=== PATIENT | female | born 1955 | race African-American/Black ===

== ENCOUNTER → 2017-05-01 | Outpatient (CLI) | payer BC ==
[~2017-05-01] MED LIST: ARIP2TAB3 PO; CLON0.5T PO; DIPH25CA58 PO; DULO30CA2 PO; IBUP-1027 PO; IOHEXOL 180 MG/ML 10 ML VIAL. ONE; META-21 PO; OXYC-323 PO; PSEU120T9 PO; TRAM50TA PO; TRAZ50TA15 PO; ZOLP12.54 PO; methylPREDNISolone ACETATE 40 MG/ML VIAL. ONE; methylPREDNISolone ACETATE 80 MG/ML VIAL. ONE
--- NOTE | 2017-05-02 03:31 | PAIN ---
DATE OF SERVICE: 05/01/2017 PROGRESS NOTE FOR PAIN CLINIC DIAGNOSES: Lumbar radiculopathy with lumbar degenerative disk disease and lumbar herniated disk. HISTORY OF PRESENT ILLNESS: The patient is a 62-year-old female returns, last seen in 03/07/2016. The patient underwent lumbar epidural steroid injection at that time with about 100% improvement that was over a year and about 2 months ago. The patient reports that the pain has been returning now for several months, it is getting worse in the low back and into the bilateral lower extremities with pain and burning in the thighs both anteriorly and medially, but also in the lateral thighs and some in the low back as well. The patient reports anywhere from 1 to a 7 on a scale 10, 7 at its worst, normally about 3 on a scale of 10, it is a 1 on a scale of 10 today. The patient reports no loss of motor function, but still significant pain, as she had last year, worse with walking and standing, burning thighs with slight bending forward, has burning in the low back, constant pain in her knees as well. She is scheduled for a right knee replacement on the right knee. She reports later this summer. PAST MEDICAL HISTORY: Significant for hypertension, arthritis, headaches, sinus congestion, cataracts. PREVIOUS SURGERY: Includes cervical diskectomy in 2004, cataract extractions, 2 C-sections, hernia repair, appendectomy, foot surgery x 2, history of kidney stones removed and fatty tumor in the neck removed. CURRENT MEDICATIONS: Include trazodone, zolpidem, Abilify, Cymbalta, Klonopin, Benadryl, Sudafed, tramadol, Skelaxin, ibuprofen and Percocet. ALLERGIES: THE PATIENT IS ALLERGIC TO BACTRIM. SOCIAL HISTORY: The patient does not smoke. Drinks about 2 alcoholic drinks a week on an average. Works in a [employer] department. , lives with her spouse, lives locally in [place], [place]. FAMILY HISTORY: Significant for brain tumors, cancers, and hypertension. REVIEW OF SYSTEMS: The patient's review of systems is positive for those items mentioned in history of present illness. All systems reviewed and otherwise negative. It is complete, full and well documented on the patient's chart. PHYSICAL EXAMINATION: VITAL SIGNS: Today, the patient's blood pressure 117/65, pulse 98, respirations 18, temperature 98.4 degrees Fahrenheit, height is 5 feet 2 inches, weight is 273 pounds. GENERAL: The patient is awake, alert, oriented, appropriate, very pleasant demeanor. HEENT: Head shows normocephalic, atraumatic. Extraocular movements are intact, symmetrical. Oral cavity, mucous membranes are moist and pink. Dentition is intact. NECK: Shows anterior throat supple without palpable lymphadenopathy noted. Swallow reflex is symmetrical. CHEST: Shows normal on inspection. Breath sounds clear to auscultation bilaterally. HEART: Shows S1 and S2 clear. No murmurs are auscultated. ABDOMEN: Obese, soft, nontender, nondistended. No palpable organomegaly. No rebound or guarding demonstrated. BACK: Shows grossly midline spine with some slight exaggeration of thoracic kyphosis, mild flattening of lumbar lordotic curvature. No previous surgical scars. Lumbar paraspinous musculature shows symmetrical on inspection with palpation shows normal muscle girth in the upper, middle and lower distribution with some minor tenderness which is only diffusely tender mostly in the middle and lower distribution of paraspinous muscles, but without radiation. There is no tenderness over the sacrum or sacroiliac regions. The patient shows good rotation and motion of the lumbar spine, both laterally as well as extension and flexion without significant pain reported. EXTREMITIES: The patient's lower extremities showed deep tendon reflexes 1+ in the patellar and tendo calcaneus tendons are equal. Motor exam is strong with dorsiflexion, extension, quadriceps and hamstring flexion rated 5/5 and symmetrical. Peripheral pulses are 1+ in the posterior tibial and dorsalis pedis pulses. No peripheral edema is noted. Options were discussed with the patient. At this time, the patient's old chart was reviewed as her current medication regimen updated. Current review of systems updated as noted. We will proceed with a lumbar epidural steroid injection today with translaminar approach and fluoroscopic guidance. Risks were again discussed including, but not limited to bleeding, infection, possibility of epidural hematoma, subsequent neurologic compromise, dural puncture, headaches, spinal cord and/or nerve damage, side effects of steroid medication and poor results regarding pain control. The patient understands and wishes to proceed. The patient will return to clinic in approximately 2 weeks for followup. She was counseled to return appointment, activity level and side effects to be aware of. DIAGNOSES: Lumbar radiculopathy with lumbar degenerative disk disease, lumbar herniated disk. PROCEDURE: Lumbar epidural steroid injection in translaminar approach at the L3-L4 level using C-arm fluoroscopic guidance under sterile prep and drape using local anesthetic. MEDICATION INJECTED: 120 mg Depo-Medrol plus 10 mL of preservative-free normal saline and 2 mL of Isovue for contrast. CONDITION AT DISCHARGE: Stable. The patient tolerated procedure well, had no complications. CRESENCIO SNIDER MD DR: KEMAL/randy JOB#: [id number] / [id number]
== END | disposition home or self-care (01) ==
LOC: PNCL 14:48
PROVIDERS: ATTEND Anesthesiology
DX: M51.16 Intervertebral disc disorders with radiculopathy, lumbar region (principal); I10 Essential (primary) hypertension; M19.90 Unspecified osteoarthritis, unspecified site; Z82.49 Family history of ischemic heart disease and other diseases of the circulatory system; Z72.89 Other problems related to lifestyle; Z88.1 Allergy status to other antibiotic agents; Z88.3 Allergy status to other anti-infective agents
CPT/HCPCS: 62323; J1030; J1040

== ENCOUNTER → 2018-03-15 | Outpatient (CLI) | payer BC | END | disposition home or self-care (01) | LOC: PNCL 08:28 | DX: M51.16 Intervertebral disc disorders with radiculopathy, lumbar region (principal); M25.551 Pain in right hip; M25.561 Pain in right knee; M25.562 Pain in left knee | CPT/HCPCS: 99212 ==

== ENCOUNTER → 2018-04-12 | Outpatient (CLI) | payer BC ==
[~2018-04-12] MED LIST changes: -ARIP2TAB3 PO; -CLON0.5T PO; -DIPH25CA58 PO; -DULO30CA2 PO; -IBUP-1027 PO; +IOHEXOL 180 MG/ML 10 ML VIAL.; -IOHEXOL 180 MG/ML 10 ML VIAL. ONE; +LIDOCAINE 1% PF 2 ML VIAL.; -META-21 PO; -OXYC-323 PO; -PSEU120T9 PO; -TRAM50TA PO; -TRAZ50TA15 PO; -ZOLP12.54 PO; +methylPREDNISolone ACETATE 40 MG/ML VIAL.; -methylPREDNISolone ACETATE 40 MG/ML VIAL. ONE; +methylPREDNISolone ACETATE 80 MG/ML VIAL.; -methylPREDNISolone ACETATE 80 MG/ML VIAL. ONE
== END ==
LOC: PNCL 07:29
DX: M51.16 Intervertebral disc disorders with radiculopathy, lumbar region (principal)
CPT/HCPCS: 62323; J1030; J1040; Q9965

== ENCOUNTER → 2018-07-12 | Outpatient (CLI) | payer BC ==
[~2018-07-12] MED LIST changes: +ALPR1TAB2 PO; +ARIP2TAB3 PO; +CHOL2000 PO; +CLON0.5T PO; +DIPH25CA58 PO; +DULO30CA2 PO; +GABA-586 PO; +IBUP-1027 PO; -IOHEXOL 180 MG/ML 10 ML VIAL.; +IOHEXOL 180 MG/ML 10 ML VIAL. ONE; -LIDOCAINE 1% PF 2 ML VIAL.; +LIDOCAINE 2% PF 2ML VIAL. ONE; +META-21 PO; +OXYC-323 PO; +PSEU120T9 PO; +ROPI0.5T PO; +TRAM50TA PO; +TRAZ-85 PO; +ZOLP12.54 PO; +cbd; +loratidine; -methylPREDNISolone ACETATE 40 MG/ML VIAL.; +methylPREDNISolone ACETATE 40 MG/ML VIAL. ONE; -methylPREDNISolone ACETATE 80 MG/ML VIAL.; +methylPREDNISolone ACETATE 80 MG/ML VIAL. ONE
--- NOTE | 2018-07-12 14:03 | PAIN ---
DATE OF SERVICE: 07/12/2018 PROGRESS NOTE TO PAIN CLINIC DIAGNOSES: Lumbar radiculopathy with lumbar degenerative disk disease, lumbar herniated disk. HISTORY OF PRESENT ILLNESS: The patient is a 63-year-old female who returns for followup status post lumbar epidural steroid injection x 1 on 04/12/2018. The patient did well with this, about 80% improvement for the first month to a month and a half and the pain began to return very gradually and slowly in the low back and left lower extremity as it was previously in the anterior lateral thigh, anterior medial thigh, medial knee on the left side. The patient reports it is an 8 on a scale of 10 at its worst, 6 on average and 3 at its least and is a 6 today. The patient reports it as burning, radiating and tight; worse with standing, walking; also has bilateral knee pain, which she feels is making her back worse and she is favoring her knees significantly. The patient reports it is worse with sitting upright for a prolonged period for 15-20 minutes, better with lying down. It wakes her from sleep about every 4-6 hours, but usually she repositions and gets back to sleep. The patient reports no new motor or sensory deficits, no new bowel or bladder incontinence or complaints. PHYSICAL EXAMINATION: VITAL SIGNS: The patient's blood pressure is 156/99, pulse 93, respirations 18, temperature 98.2 degrees Fahrenheit, 5 feet 2 inches, weight is 239 pounds. GENERAL: The patient is awake, alert, oriented, appropriate, very pleasant demeanor. HEENT: Head shows normocephalic, atraumatic. Extraocular movements are intact and symmetrical. Oral cavity: Mucous membranes moist and pink. Dentition is intact. NECK: Shows anterior throat supple without palpable lymphadenopathy noted. Swallow reflex symmetrical. CHEST: Shows normal with inspection. Breath sounds clear to auscultation bilaterally. HEART: Shows S1, S2 clear. No murmurs auscultated. ABDOMEN: Soft, nontender, nondistended. No palpable organomegaly. No rebound or guarding demonstrated. BACK: Shows spine grossly in the midline. Normal-appearing thoracic kyphosis, some minor flattening of lumbar lordotic curvature. Lumbar paraspinous muscle shows symmetrical on inspection; on palpation, shows some moderate tenderness but only diffusely without radiation. The patient has good rotational motion of lumbar spine, both laterally as well as extension and flexion without significant difficulty or pain reported. EXTREMITIES: The patient's lower extremities show deep tendon reflexes at 1+ in the patellar and tendo-calcaneus tendons. Motor exam is strong with 5/5 dorsiflexion and extension, quadriceps and hamstring flexion is symmetrical bilaterally as well. No peripheral edema is noted. Peripheral pulses are 1+ bilaterally. Options were discussed with the patient. The patient's old chart was reviewed as her current medication regimen updated. Current review of systems updated today as well. We will proceed with the second in a series of lumbar epidural steroid injection today with fluoroscopic guidance. Risks were again discussed including, but not limited to bleeding, infection, possibility of epidural hematoma, subsequent neurologic compromise, dural puncture, headaches, spinal cord and/or nerve damage, side effects of steroid medication and poor results regarding pain control. The patient understands and wished to proceed. The patient will return to clinic in approximately 2 weeks for followup, was counseled on return appointment, activity level and side effects to be aware of. DIAGNOSIS: Lumbar radiculopathy with lumbar degenerative disk disease, lumbar herniated disk. PROCEDURES: Lumbar epidural steroid injection, translaminar approach at L3-L4 level using C-arm fluoroscopic guidance under sterile prep and drape using local anesthetic. MEDICATION INJECTED: A total of 120 mg Depo-Medrol plus 10 mL of preservative-free normal saline and 2 mL of Isovue for contrast. CONDITION AT DISCHARGE: Stable. The patient tolerated procedure well, had no complications. CRESENCIO SNIDER MD DR: KEMAL/randy JOB#: [id number] / [id number]
== END | disposition home or self-care (01) ==
LOC: PNCL 09:10
PROVIDERS: ATTEND Anesthesiology
DX: M51.16 Intervertebral disc disorders with radiculopathy, lumbar region (principal); Z88.2 Allergy status to sulfonamides; Z88.1 Allergy status to other antibiotic agents
CPT/HCPCS: 62323; J1030; J1040; J2001; Q9965

== ENCOUNTER → 2019-09-09 | Outpatient (CLI) | payer BC ==
[~2019-09-09] MED LIST changes: +BUPIVACAINE MPF 0.25% 10 ML VIAL. ONE; +FEXO180T81 PO; -GABA-586 PO; +GABA300C18 PO; +HYDR25TA PO; +IBUP1TAB84 PO; -LIDOCAINE 2% PF 2ML VIAL. ONE; -OXYC-323 PO; +OXYC1TAB15 PO; +TRAZ-118 PO; -TRAZ-85 PO; -methylPREDNISolone ACETATE 40 MG/ML VIAL. ONE
--- NOTE | 2019-09-09 09:21 | PAIN ---
DATE OF SERVICE: 09/09/2019 PROGRESS NOTE FOR PAIN CLINIC DIAGNOSES: 1. Lumbar radiculopathy with lumbar degenerative disk disease and lumbar herniated disk. 2. Left greater trochanteric bursitis. HISTORY OF PRESENT ILLNESS: The patient is a 64-year-old female who returns for followup status post lumbar epidural steroid injection x 2, first in February and then the second one on 04/04/2019. The patient did well with these initially, but the pain is returning now, is different. The patient reports her back pain is still significantly painful in the back and the left lower extremity. She is planning a knee surgery in about one month on the right side, but her main complaint today is left lateral hip pain, worse with walking, standing, changing positions, especially standing from a sitting position and with standing for any period of time. The patient reports it is unbearable. She has been using heat and ice, doing massage therapy, stretching without significant decrease in pain, it is very different from her pain on her last visit and reports it is excruciating. The patient rates her pain as 8-9 on a scale of 10 at its worst, 8 on average, 7 at its least and is a 7 today. The patient reports it is aching, sharp, shooting, tingling, burning, radiating and unbearable at times. The patient reports no new motor or sensory deficits, no loss of bowel or bladder incontinence. PHYSICAL EXAMINATION: VITAL SIGNS: The patient's blood pressure 176/106, pulse 105, respirations 18, temperature 98.0 degrees Fahrenheit, height is 5 feet 2 inches, weight 226 pounds. GENERAL: The patient is awake, alert, oriented, appropriate, very pleasant demeanor. HEENT: Exam shows normocephalic, atraumatic. Extraocular movements are intact and symmetrical. Oral cavity: Mucous membranes moist and pink. Dentition is intact. NECK: Shows anterior throat supple without palpable lymphadenopathy noted. Swallow reflex is symmetrical. CHEST: Shows normal on inspection. Breath sounds clear to auscultation bilaterally. HEART: Shows S1, S2 clear. No murmurs auscultated. ABDOMEN: Soft, nontender, nondistended. No palpable organomegaly is noted. No rebound or guarding demonstrated. BACK: Shows spine grossly in the midline. Normal-appearing thoracic kyphosis and lumbar lordotic curvature. Lumbar paraspinous muscle shows symmetrical on inspection, on palpation shows some moderate tenderness diffusely bilaterally, but only diffusely without significant radiation. EXTREMITIES: The patient's lower extremities show deep tendon reflexes at 1+ in the patellar and tendo calcaneus tendons. Motor exam is strong with 5/5 dorsiflexion, extension, quadriceps and hamstring flexion. Peripheral pulses are 1+ posterior tibia. No peripheral edema is noted. The patient's left lateral thigh shows excruciating pain with even moderate palpation over the left greater trochanter, mild pain over the right greater trochanter as well. Options were discussed with the patient. The patient's old chart was reviewed as her current medication regimen updated. Current review of systems updated today as well. We will proceed with a left greater trochanteric bursa injection today with fluoroscopic guidance. Risks were again discussed including, but not limited to bleeding, infection, possibility of intravascular injection sequelae, spread of local anesthetic and numbness, side effects of steroid medication and poor results regarding pain control. The patient understands and wished to proceed. The patient will return to clinic in approximately 2 weeks for followup. She was counseled on return appointment, activity level and side effects to be aware of. DIAGNOSIS: Left greater trochanteric bursitis. PROCEDURE: Left greater trochanteric bursa injection using C-arm fluoroscopic guidance under sterile prep and drape using local anesthetic. MEDICATION INJECTED: A total of 80 mg Depo-Medrol plus 3 mL of 0.25% bupivacaine and 1 mL of contrast. CONDITION AT DISCHARGE: Stable. The patient tolerated the procedure well, had no complications. CRESENCIO SNIDER MD DR: KEMAL/randy JOB#: [id number] / [id number]
== END ==
LOC: PNCL 07:31
PROVIDERS: ATTEND Anesthesiology
DX: M70.62 Trochanteric bursitis, left hip (principal); M51.16 Intervertebral disc disorders with radiculopathy, lumbar region
CPT/HCPCS: 20610; 77002; J1040; J3490; Q9965; 20605

== ENCOUNTER → 2019-09-16 | Outpatient (CLI) | payer BC ==
[~2019-09-16] MED LIST changes: -BUPIVACAINE MPF 0.25% 10 ML VIAL. ONE; -IOHEXOL 180 MG/ML 10 ML VIAL. ONE; -methylPREDNISolone ACETATE 80 MG/ML VIAL. ONE
--- NOTE | 2019-09-17 08:24 | KCIC ---
MRI of the lumbar spine without contrast 09/16/2019 CLINICAL HISTORY: Chronic low back pain which radiates down both legs, left greater than right. TECHNIQUE: Unenhanced T1-weighted and T2-weighted sagittal and axial and inversion recovery sagittal images of the lumbar spine were obtained. TECHNIQUE: Unenhanced T1-weighted and T2-weighted sagittal and axial and inversion recovery sagittal images of the lumbar spine were obtained. FINDINGS: Very mild S-shaped curvature of the thoracolumbar spine is seen. Degenerative changes are seen involving all of the disks of the lower thoracic and throughout the lumbar spine. Degenerative signal changes are seen within the marrow surrounding these discs. Loss of height of the L4-5 disc is noted. The conus medullaris is normal in morphology, position, and signal characteristics. At the L1-2 and L2-3 disc spaces there are minimal to mild generalized disc bulges. Degenerative changes are seen involving the facet joints bilaterally. There is mild ligamentum flavum hypertrophy bilaterally. These findings when combined do not result in significant central spinal canal or neural foraminal stenosis. At the L3-4 disc space there is a mild generalized disc bulge. This is eccentric to the left. Degenerative changes are seen involving the facet joints, left greater than right. There is mild to moderate ligamentum flavum hypertrophy bilaterally. There is prominence of the posterior epidural fat. These findings when combined result in mild left-sided central spinal canal stenosis. No neural foraminal stenosis is seen. At the L4-5 disc space there is a mild generalized disc bulge. Degenerative changes are seen involving the facet joints bilaterally. There is mild ligamentum flavum hypertrophy bilaterally. These findings when combined do not result in significant central spinal canal or neural foraminal stenosis. At the L5-S1 disc space there is a minimal generalized disc bulge. Degenerative changes are seen involving the facet joints bilaterally. These findings do not result in significant central spinal canal or neural foraminal stenosis. IMPRESSION: The changes of degenerative disc disease are seen throughout the lumbar spine. These findings result in mild left-sided central spinal canal stenosis at at L3-4. No neural foraminal stenosis is seen. Electronically signed by: Jeff Pearl MD (09/17/2019 8:21 AM) [id number]
== END ==
LOC: KCIC MRI 17:15
PROVIDERS: ATTEND Anesthesiology
DX: M51.16 Intervertebral disc disorders with radiculopathy, lumbar region (principal); G89.29 Other chronic pain
CPT/HCPCS: 72148